=== PATIENT | male | born 1985 | race Caucasian/White ===

== ENCOUNTER 2023-03-29 10:22 | Emergency (ER) | payer OTHER ==
[2023-03-29] MEDS ORDERED: KETOROLAC 15 MG/ML 1 ML VIAL IM STA (10:53)
[2023-03-29] MEDS ORDERED: CYCLOBENZAPRINE 5 MG TAB PO STA (10:55)
[2023-03-29] MEDS ORDERED: LIDOCAINE 5% PATCH TOPICAL SCH (11:00)
--- NOTE | 2023-03-29 11:02 | ED ---
General Adult HPI - General Chief complaint: Extremity Injury, Lower Stated complaint: L Leg Pain Time Seen by Provider: 03/29/23 10:36 Source: patient, RN notes reviewed Mode of arrival: ambulatory - History of Present Illness Initial comments: 38-year-old male with no significant past medical history presents to the emergency department with a pain. Patient reports a left thigh pain started on Sunday after mowing the grass. She denies any known trauma or injury however he felt a small twinge of left lower back pain and thinks it may be related. He denies any systemic symptoms such as rash, warmth, fever, chills. He took one dose of Tylenol on Sunday which provided no relief. Denies any shortness of breath, dyspnea , and history of DVT. He reports that he feels like it's much full has been twitching. - Related Data Previous Rx's Medication Instructions Recorded Cyclobenzaprine [Flexeril] 5 mg PO TID PRN #15 tablet 03/29/23 Lidocaine 5% Patch [Lidoderm 5% 1 each TP DAILY #3 patch 03/29/23 Patch] Allergies Allergy/AdvReac Type Severity Reaction Status Date / Time No Known Allergies Allergy Verified 03/29/23 10:33 Review of Systems ROS Statement: Those systems with pertinent positive or pertinent negative responses have been documented in the HPI. ROS Other: All systems not noted in ROS Statement are negative. Past Medical History Additional Past Medical History / Comment(s): IBS. osteomyloma none malignant 2004 History of Any Multi-Drug Resistant Organisms: None Reported Past Surgical History: Hernia Repair Additional Past Surgical History / Comment(s): left leg sx 2004. jaw, wrist Past Psychological History: Depression Smoking Status: Never smoker Past Alcohol Use History: None Reported Past Drug Use History: None Reported General Exam - General Exam Comments Initial Comments: General: Alert, in no acute distress Head: atraumatic normocephalic. Eyes PERRL, EOMI intact, mucous membranes moist Respiratory: Lungs clear to auscultation bilaterally Cardiovascular: Heart rate regular rate and rhythm Abdominal: Soft without guarding or rebound Extremities: Normal inspection with full range of motion and normal capillary refill, left thigh without any rashes, lesions, erythema, edema. No tenderness on exam. Full range of motion. 5 out of 5 strength. Neuroogic: alert and oriented 3, CN II-XII intact, able to ambulate with steady gait Skin: warm dry and intact with normal color Course Vital Signs 03/29/23 03/29/23 10:26 12:06 Temperature 98.2 F 97.8 F Pulse Rate 73 62 Respiratory 18 16 Rate Blood Pressure 128/76 103/66 O2 Sat by Pulse 95 95 Oximetry Medical Decision Making - Medical Decision Making Was pt. sent in by a medical professional or institution (ARMANDO Bernard, [employer], urgent care, hospital, or penitentiary...) When possible be specific @ -[No] Did you speak to anyone other than the patient for history (EMS, parent, family, police, friend...)? What history was obtained from this source @ -Mother Did you review nursing and triage notes (agree or disagree)? Why? @ -[I reviewed and agree with nursing and triage notes] Were old charts reviewed (outside hosp., previous admission, EMS record, old EKG, old radiological studies, urgent care reports/EKG's, penitentiary records)? Report findings @ -[No old charts were reviewed] Differential Diagnosis (chest pain, altered mental status, abdominal pain women, abdominal pain men, vaginal bleeding, weakness, fever, dyspnea, syncope, headache, dizziness, GI bleed, back pain, seizure, CVA, palpatations, mental health, musculoskeletal)? @ -[not applicable] EKG interpreted by me (3pts min.). @ -[As above] X-rays interpreted by me (1pt min.). @ -[None done] CT interpreted by me (1pt min.). @ -[None done] U/S interpreted by me (1pt. min.). @ -[None done] What testing was considered but not performed or refused? (CT, X-rays, U/S, labs)? Why? @ -Imaging was considered however patient denies any known injury or trauma. What meds were considered but not given or refused? Why? @ -[None] Did you discuss the management of the patient with other professionals (professionals i.e. ARMANDO Bernard, [employer], lab, RT, psych nurse, social studies teacher, steward/stewardess wine, teacher, dog license officer supervisor, case packer and sealer)? Give summary @ -[No] Was smoking cessation discussed for >3mins.? @ -[No] Was critical care preformed (if so, how long)? @ -[No] Were there social determinants of health that impacted care today? How? (Homelessness, low income, unemployed, alcoholism, drug addiction, transportation, low edu. Level, literacy, decrease access to med. care, skilled nursing, rehab)? @ -[No] Was there de-escalation of care discussed even if they declined (Discuss DNR or withdrawal of care, Hospice)? DNR status @ -[No] What co-morbidities impacted this encounter? (DM, HTN, Smoking, COPD, CAD, Cancer, CVA, ARF, Chemo, Hep., AIDS, mental health diagnosis, sleep apnea, morbid obesity)? @ -[None] Was patient admitted / discharged? Hospital course, mention meds given and route, prescriptions, significant lab abnormalities, going to OR and other pertinent info. @ Discharged. This is a pleasant 38-year-old female who presents to the emergency department with a chief complaint left thigh pain. Patient had a thorough history and physical exam performed on the ED. Physical exam reveals a a-febrile heart rate regular rate and rhythm, lungs clear to auscultation all lung sullivan, abdomen soft non-tender. Patient is nontoxic and non-ill appearing. Left thigh without any rashes, erythema, or acute swelling, marked t enderness. Full range of motion. X-rays were considered however patient denies any systemic symptoms such as fever, rashes, erythema, edema. He also denies any new injury. Patient was provided a prescription for Lidoderm patches and Flexeril.. Strict return precautions were discussed at length. Patient be discharged home in stable condition. Case discussed with MADELYN Mñuoz who agrees with plan of care Undiagnosed new problem with uncertain prognosis? @ -[No] Drug Therapy requiring intensive monitoring for toxicity (Heparin, Nitro, Insulin, Cardizem)? @ -[No] Were any procedures done? @ -[No] Diagnosis/symptom? @ -Left thigh problem - Muscle Spasm Acute, or Chronic, or Acute on Chronic? @ -Acute Uncomplicated (without systemic symptoms) or Complicated (systemic symptoms)? @ -Uncomplicated Side effects of treatment? @ -[No] Exacerbation, Progression, or Severe Exacerbation? @ -[No] Poses a threat to life or bodily function? How? (Chest pain, [place], [place], pneumonia, PE, COPD, DKA, ARF, appy, cholecystitis, CVA, Diverticulitis, Homicidal, Suicidal, threat to staff... and all critical care pts) @ -Low likelihood Disposition Clinical Impression: Thigh pain, Muscle spasm Disposition: HOME SELF-CARE Condition: Stable Instructions (If sedation given, give patient instructions): Muscle Spasm (ED) Additional Instructions: Please return to the nearest emergency department is symptoms worsen or persist Prescriptions: Cyclobenzaprine [Flexeril] 5 mg PO TID PRN #15 tablet PRN Reason: Muscle Spasm Lidocaine 5% Patch [Lidoderm 5% Patch] 1 each TP DAILY #3 patch Is patient prescribed a controlled substance at d/c from ED?: No Referrals: Darius Vega MD [Primary Care Provider] - 1-2 days Time of Disposition: 11:42
[2023-03-29 12:07] VITALS: BP 103/66; PULSE 62; RESP 16; TEMP 97.8
== END 2023-03-29 12:07 | disposition home or self-care (01) ==
LOC: EC 10:22
DX: M79.652 Pain in left thigh (principal); M62.838 Other muscle spasm; Z86.59 Personal history of other mental and behavioral disorders
CPT/HCPCS: 99283; 96372; J1885

== ENCOUNTER → 2024-04-29 | Outpatient (CLI) | payer OTHER ==
[2024-04-29 13:55] VITALS: BP 112/68; PULSE 85; RESP 16; TEMP 98.3
--- NOTE | 2024-04-29 15:00 | P.SLEEP ---
History of Present Illness H&P Date: 04/29/24 This is a 39-year-old male patient who is coming in for sleep apnea evaluation. This patient has been diagnosed having obstructive sleep apnea during his stay in the [facility]. Noted the patient lived in [place] for several years and currently is back in [place] to live with his mother. He is known to have history of depression and is morbidly obese and carries a body mass index of 39.8. In summary, the patient was given diagnosis obstructive sleep apnea. Nevertheless, he did not undertake any treatment because of lack of insurance. Ultimately, he used his mother CPAP unit and he felt better. He is seeking further attention and workup at this point in time. Noted his mother and 3 of his brothers have obstructive sleep apnea. The patient has loud snoring, prolonged apnea that is witnessed by the mother along with sleep fragmentation and chronic hypersomnia sleepiness. He goes to bed at 11 PM wakes up 8:30 AM in the morning and despite that he feels drowsy and sleepy. 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 During wintertime, his sleep schedule becomes more interrupted as the patient becomes unemployed. The patient denies drinking alcohol. No substance abuse. No smoking. No history of any motor vehicle accidents because of feeling drowsy or sleepy. No grinding of the teeth. No nocturia. No palpitations or heartburn. His depression has been severe and the patient has been receiving adequate treatment and is currently on a combination of bupropion and Lexapro. He also has history of chronic anxiety. Concerned about the weight and has been reported as the patient has gained approximately 50 pounds over the past 5 years. Review of Systems Constitutional: Reports daytime sleepiness, Reports fatigue, Reports weight gain Eyes: denies as per HPI, denies blurred vision, denies bulging eye, denies decreased vision, denies diplopia, denies discharge, denies dry eye, denies irritation, denies itching, denies pain, denies photophobia, denies loss of peripheral vision, denies loss of vision, denies tunnel vision/blind spots Ears: deny: decreased hearing, ear discharge, earache, tinnitus Ears, nose, mouth and throat: Reports as per HPI Breasts: absent: as per HPI, gynecomastia Cardiovascular: Reports as per HPI Respiratory: Reports sleep apnea, Reports snoring Gastrointestinal: Reports as per HPI Genitourinary: Reports as per HPI Musculoskeletal: absent: ankle pain, ankle stiffness, ankle swelling, as per HPI, elbow pain, elbow stiffness, elbow swelling, foot pain, foot stiffness, foot swelling, hand pain, hand stiffness, hand swelling, hip pain, hip stiff ness, hip swelling, knee pain, knee stiffness, knee swelling, shoulder pain, shoulder stiffness, shoulder swelling, wrist pain, wrist stiffness, wrist swelling Integumentary: Reports as per HPI Neurological: Reports as per HPI Psychiatric: Reports anxiety, Reports change in sleep habits, Reports depression, Reports hypersomnia, Reports sleep disturbances Endocrine: Reports as per HPI, Reports fatigue Hematologic/Lymphatic: Reports as per HPI Allergic/Immunologic: Reports as per HPI Past Medical History Additional Past Medical History / Comment(s): IBS. osteomyloma none malignant 2004 History of Any Multi-Drug Resistant Organisms: None Reported Past Surgical History: Adenoidectomy, Hernia Repair, Tonsillectomy Additional Past Surgical History / Comment(s): left leg sx 2004. jaw, wrist Past Anesthesia/Blood Transfusion Reactions: No Reported Reaction Past Psychological History: No Psychological Hx Reported, Depression Smoking Status: Never smoker Past Alcohol Use History: None Reported Past Drug Use History: None Reported Medications and Allergies Home Medications Medication Instructions Recorded Confirmed Type Eluxadoline [Viberzi] 100 mg PO 04/29/24 History Escitalopram [Lexapro] 20 mg PO DAILY 04/29/24 04/29/24 History buPROPion HCL [buPROPion HCL SR] 150 mg PO Q12HR 04/29/24 04/29/24 History Allergies Allergy/AdvReac Type Severity Reaction Status Date / Time No Known Allergies Allergy Verified 03/29/23 10:33 Physical Exam Vitals: Vital Signs Temp Pulse Resp BP Pulse Ox 04/29/24 13:54 98.3 F 85 16 112/68 92 L Intake and Output 04/28/24 04/29/24 04/29/24 22:59 06:59 14:59 Other: Weight 126.099 kg The patient is morbidly obese, calm and comfortable, no acute distress. The patient appeared well nourished and normally developed. Vital signs as documented. Head exam is unremarkable. No scleral icterus or corneal arcus noted. Neck is without jugular venous distension, thyromegaly, or carotid bruits. The patient has a Mallampati class IV with significant crowding of posterior pharynx. Carotid upstrokes are brisk bilaterally. Lungs are clear to auscultation and percussion. Cardiac exam reveals the PMI to be normally sized and situated. Rhythm is regular. First and second heart sounds normal. No murmurs, rubs or gallops. Abdominal exam reveals normal bowel sounds, no masses, no organomegaly and no aortic enlargement. Extremities are nonedematous and both femoral and pedal pulses are normal. Examination of the skin revealed no evidence of significant rashes, suspicious appearing nevi or other concerning lesions. Neurologically, the patient is awake and alert and the patient does not have any focal neurological deficit. Cranial nerves are essentially intact. Assessment and Plan Plan: Obstructive sleep apnea, currently undergoing no treatment. Patient is presenting for an evaluation and he is interested in therapy as the patient has excessive hypersomnia sleepiness during the day. Hypersomnia with an Mosheim score of 7 Obesity with a BMI of 39.8 with significant weight gain over the past 5 years and this has been in the order of 50 pounds. Chronic anxiety Chronic depression Irritable bowel disease Plan High likelihood for obstructive sleep apnea and ongoing disease. The patient will need a screening polysomnography to establish diagnosis and severity and following that, the patient will need treatment, CPAP therapy. As mentioned earlier, the patient is utilizing his mother CPAP unit and he has seen some clinical response. He does have a strong family history of obstructive sleep apnea as several family members including his mother and several brothers have been diagnosed and treated for this disorder. His mental health is adequately treated at this point as the patient has chronic anxiety and depression. Encourage weight loss. Maintain regular sleep schedule. Optimize sleep hygiene measures. Proceed with screening polysomnography to be followed by CPAP therapy. He is a mouth breather. Sleep Note - Sleep Data ESS Total: 7 - Sleep Note Sleep Note: Temperature: 98.3 F Pulse Rate: 85 Respiratory Rate: 16 Blood Pressure: 112/68 SpO2: 92 Height: 5 ft 10 in Weight: 126.099 kg BMI: Neck Circumference: 20.7
== END ==
LOC: 3 N SLEEP 13:11
PROVIDERS: ATTEND Internal Medicine Critical Care Medicine
CPT/HCPCS: 99211

== ENCOUNTER → 2024-05-23 | Outpatient (CLI) | payer OTHER ==
--- NOTE | 2024-06-02 23:13 | P.PCN ---
Date of Procedure: 05/24/24 Operative Findings: Home sleep study testing Date of service is 05/24/2024 History This is a 39-year-old male patient who is coming in for sleep apnea evaluation. This patient has been diagnosed having obstructive sleep apnea during his stay in the [facility]. Noted the patient lived in [place] for several years and currently is back in [place] to live with his mother. He is known to have history of depression and is morbidly obese and carries a body mass index of 39.8. In summary, the patient was given diagnosis obstructive sleep apnea. Nevertheless, he did not undertake any treatment because of lack of insurance. Ultimately, he used his mother CPAP unit and he felt better. He is seeking further attention and workup at this point in time. Noted his mother and 3 of his brothers have obstructive sleep apnea. The patient has loud snoring, prolonged apnea that is witnessed by the mother along with sleep fragmentation and chronic hypersomnia sleepiness. He goes to bed at 11 PM wakes up 8:30 AM in the morning and despite that he feels drowsy and sleepy. 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 During wintertime, his sleep schedule becomes more interrupted as the patient becomes unemployed. The patient denies drinking alcohol. No substance abuse. No smoking. No history of any motor vehicle accidents because of feeling drowsy or sleepy. No grinding of the teeth. No nocturia. No palpitations or heartburn. His depression has been severe and the patient has been receiving adequate treatment and is currently on a combination of bupropion and Lexapro. He also has history of chronic anxiety. Concerned about the weight and has been reported as the patient has gained approximately 50 pounds over the past 5 years. Pertinent physical findings The patient's weight is 178 pounds with a body mass index of 39.8 Technical description The [employer] Apnea[employer] system was used to complete his home sleep study. This is a type III home sleep study evaluation. The total recording duration was 10 hours and 15 minutes. The study started at 12:35 AM and the study ended at 10:51 AM. There was a total of 9 hours and 6 minutes of flow monitoring and 10 hours and 3 minutes of oxygen saturation monitoring. Results The respiratory analysis showed a total of 261 obstructive apneas and 281 obstructive hypopneas. The resulting AHI was 59.5 consistent with severe obstructive sleep apnea. Oxygenation analysis The patient had a total of 466 oxygen desaturation episodes with a pulse ox dropping more than 4%. The minimum pulse ox recorded was 81%. Average pulse ox was 92% during sleep and a baseline pulse ox while awake on room air oxygen was 95% The patient spent approximately 23 minutes of sleep time below pulse ox of 89% Cardiac summary Average heart rate was 64 with a minimum heart rate of 45 and a maximum heart rate of 104 Assessment Severe LUCA with an AHI of 59.5 Nocturnal oxygen desaturation secondary to above with a minimum pulse ox of 81% Hypersomnia with an Dante score of 7 Obesity with a BMI of 39.8 with significant weight gain over the past 5 years and this has been in the order of 50 pounds. Chronic anxiety Chronic depression Irritable bowel disease Plan Proceed with CPAP therapy regarding severe symptomatic obstructive sleep apnea. His mental health is adequately treated at this point as the patient has chronic anxiety and depression. Encourage weight loss. Maintain regular sleep schedule. Optimize sleep hygiene measures.
== END ==
LOC: 3 N SLEEP 13:01
PROVIDERS: ATTEND Internal Medicine Critical Care Medicine

== ENCOUNTER 2024-08-06 19:26 | Outpatient (CLI) | payer OTHER ==
--- NOTE | 2024-08-08 18:48 | P.PCN ---
Date of Procedure: 08/06/24 Operative Findings: Date of service is 08/06/2024 CPAP titration report History This is a 39-year-old male patient who is coming in for sleep apnea evaluation. This patient has been diagnosed having obstructive sleep apnea during his stay in the [facility]. Noted the patient lived in [place] for several years and currently is back in [place] to live with his mother. He is known to have history of depression and is morbidly obese and carries a body mass index of 39.8. In summary, the patient was given diagnosis obstructive sleep apnea. Nevertheless, he did not undertake any treatment because of lack of insurance. Ultimately, he used his mother CPAP unit and he felt better. He is seeking further attention and workup at this point in time. Noted his mother and 3 of his brothers have obstructive sleep apnea. The patient has loud snoring, prolonged apnea that is witnessed by the mother along with sleep fragmentation and chronic hypersomnia sleepiness. He goes to bed at 11 PM wakes up 8:30 AM in the morning and despite that he feels drowsy and sleepy. 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 During wintertime, his sleep schedule becomes more interrupted as the patient becomes unemployed. The patient denies drinking alcohol. No substance abuse. No smoking. No history of any motor vehicle accidents because of feeling drowsy or sleepy. No grinding of the teeth. No nocturia. No palpitations or heartburn. His depression has been severe and the patient has been receiving adequate treatment and is currently on a combination of bupropion and Lexapro. He also has history of chronic anxiety. Concerned about the weight and has been reported as the patient has gained approximately 50 pounds over the past 5 years. The patient was diagnosed having severe obstructive sleep apnea with an AHI of 59.5 based on a screening polysomnography was done on 05/23/2024. The patient is coming in for a CPAP titration study. Pertinent physical findings The patient's weight is 278 pounds with a body mass index of 39.8 Technical description The patient was studied using a standard complex polysomnography protocol that included recording of the Lead II EKG, Central, occipital and frontal EEG, right and left outer canthus EOG, submental EMG, right and left anterior tibialis EMG, respiratory airflow by thermocouple and or pressure/flow transducer, respiratory efforts by abdominal and thoracic PVDF belts, oxygen saturation by cable oximetry. Position by observation synchronized the PSG. Equipment used: [employer]. Stepwise CPAP titration was done to eliminate all obstructive respiratory events Sleep architecture The total recording duration was 403.5 minutes. The total sleep time was 321.0 minutes. Overall sleep efficiency was 79.6%. The latency to sleep onset was 26 minutes. The latency to REM sleep was 91 minutes. The sleep architecture was characterized by 1.6% stage I, 16.1% stage II, 3% stage III and a total of 35.4% REM sleep. The wake after sleep onset time was 35 minutes. The total arousal index was 10.7. CPAP titration summary The patient was started on CPAP therapy initially at a pressure of 5 cm of water and the pressure was gradually increased by increments of 1 cm to reach a maximum CPAP pressure of 16 cm of water. This was successful titration. At a target CPAP pressure of 16 cm, there was complete elimination of the obstructive respiratory events without any significant residual obstructive apneas or hypopneas. The patient was also able to maintain oxygen saturation above 90%. Noted the titration within normal sleep stages including REM sleep and the patient was studied in the supine and nonsupine body position. Arousal events The patient had a total of 57 and arousals with an index of 10.7. The respiratory arousal index was 0.4 Periodic limb movement activity A total of 142 periodic limb movement activity was noted with an index of 26.5. In addition, there was a total of 7 periodic limb movement activity with arousals with a periodic limb movement arousal index of 1.3 Cardiac summary The average heart rate was 71 minimum heart rate of 65 and a maximum heart rate of 80 and the rhythm was sinus Assessment Severe LUCA with an AHI of 59.5, the patient underwent a successful CPAP titration with elimination of the obstructive respiratory events and nocturnal oxygen desaturations. REM rebound related to CPAP therapy Hypersomnia with an Camden score of 7 Obesity with a BMI of 39.8 with significant weight gain over the past 5 years and this has been in the order of 50 pounds. Chronic anxiety Chronic depression Irritable bowel disease Plan Initiate CPAP therapy and the patient will be offered an APAP machine pressures of 10/16 cm of water with a C-Flex of 3. The patient will be offered a ResMed AirFit F20 fullface mask medium size Encourage weight loss. Maintain regular sleep schedule. Optimize sleep hygiene measures See him back in the office in 30 to 90 days to assess clinical response and compliancy.
== END 2024-08-07 05:15 | disposition home or self-care (01) ==
LOC: 3 N SLEEP 19:26
PROVIDERS: ATTEND Internal Medicine Critical Care Medicine
DX: G47.33 Obstructive sleep apnea (adult) (pediatric) (principal); G47.36 Sleep related hypoventilation in conditions classified elsewhere; G47.52 REM sleep behavior disorder; G47.10 Hypersomnia, unspecified; F32.A Depression, unspecified; F41.9 Anxiety disorder, unspecified; E66.9 Obesity, unspecified; K58.9 Irritable bowel syndrome, unspecified; Z68.39 Body mass index [BMI] 39.0-39.9, adult
CPT/HCPCS: 95811